=== PATIENT | female | born 1985 | race Caucasian/White ===

== ENCOUNTER 2017-01-07 21:51 | Outpatient (CLI) | payer SELFPAY ==
[2017-01-07 22:42] LABS: APPEARANCE,URINE CLOUDY; BILIRUBIN,URINE NEGATIVE (NEGATIVE); GLUCOSE, URINE NEGATIVE (NEGATIVE); KETONES,URINE NEGATIVE (NEGATIVE); LEUKOCYTE ESTERASE,URINE NEGATIVE (NEGATIVE); NITRITE,URINE NEGATIVE (NEGATIVE); PROTEIN,URINE NEGATIVE (NEGATIVE); URINE SPECIFIC GRAVITY 1.021
[2017-01-07 22:53] LABS: URINE BARBITURATES SCREEN NEGATIVE; URINE METHADONE SCREEN NEGATIVE; URINE OPIATES LOW NEGATIVE; URINE PHENCYCLIDINE SCREEN NEGATIVE
[2017-01-07] MEDS ORDERED: LIDOCAINE 2% VISCOUS SOLN 20 ML UDCUP PO ONE (23:01)
[2017-01-07] MEDS ORDERED: METOCLOPRAMIDE HCL ORAL SOLN 10 MG/10 ML UDCUP PO ONE (23:01)
[2017-01-07] MEDS ORDERED: MAG HYDROX/AL HYDROX/SIMETH SUSP 30 ML UDCUP PO ONE (23:02)
[2017-01-07] MEDS ORDERED: LIDOCAINE 2% VISCOUS SOLN 20 ML UDCUP ONE (23:35)
[2017-01-07] MEDS ORDERED: METOCLOPRAMIDE HCL ORAL SOLN 10 MG/10 ML UDCUP ONE (23:35)
[2017-01-07] MEDS ORDERED: MAG HYDROX/AL HYDROX/SIMETH SUSP 30 ML UDCUP ONE (23:52)
[2017-01-07] MEDS: RINGERS SOLUTION,LACTATED 1,000 ML IV PRN (23:58)
[2017-01-08] MEDS: RINGERS SOLUTION,LACTATED 1,000 ML IV PRN (00:04)
== END 2017-01-08 02:08 | disposition home or self-care (01) ==
LOC: LC 21:51
PROVIDERS: ATTEND Obstetrics & Gynecology
PROC: 4A1HXCZ Monitoring of Products of Conception, Cardiac Rate, External Approach (ICD-10-PCS; principal; 2017-01-07)
DX: O26.893 Other specified pregnancy related conditions, third trimester (principal); R10.9 Unspecified abdominal pain; O48.0 Post-term pregnancy; Z3A.40 40 weeks gestation of pregnancy
CPT/HCPCS: 81001; 80307; J3490

== ENCOUNTER 2018-02-02 03:34 | Emergency (ER) | payer OTHER ==
--- NOTE | 2018-02-02 03:50 | ER Document Report ---
ED General - General Stated Complaint: ABDOMINAL PAIN Time Seen by Provider: 02/02/18 03:38 Notes: Patient is 33-year-old female presents with complaint of epigastric abdominal pain that was severe came on tonight. Pain then went away on her way here. Patient has had these episodes happen a few times in the past. She is post see a GI doctor in the past but had a baby and then was busy with out for a while and therefore never followed up. She said she plans on following up with a GI doctor soon. She says they always seem to happen when she has had more stress. She felt nausea but did not vomit. She said she felt as if there is a lot of pressure in her epigastric region. No black tarry stools. No bloody stools. No history of gallbladder disease. No abdominal surgeries. No other complaints at this time. No family history of coronary disease at a young age. TRAVEL OUTSIDE OF THE [place] IN LAST 30 DAYS: No - Related Data Allergies/Adverse Reactions: No Known Allergies Allergy (Verified 01/07/17 22:53) Past Medical History - Social History Smoking Status: Never Smoker Frequency of alcohol use: None Drug Abuse: None Family History: Reviewed & Not Pertinent Review of Systems - Review of Systems Notes: My Normal Review Basic REVIEW OF SYSTEMS: CONSTITUTIONAL : Denies fever, chills, or sweats. Denies recent illness. EENT: Denies eye, ear, throat, or mouth pain or symptoms. Denies nasal or sinus congestion. CARDIOVASCULAR: Denies chest pain. RESPIRATORY: Denies cough, cold, or chest congestion. Denies shortness of breath, difficulty breathing, or wheezing. GASTROINTESTINAL: Gastric abdominal pain, nausea. GENITOURINARY: Denies difficulty urinating, painful urination, burning, frequency, or blood in urine. MUSCULOSKELETAL: Denies neck or back pain or joint pain or swelling. SKIN: Denies rash or skin lesions. NEUROLOGICAL: Denies altered mental status or loss of consciousness. Denies headache. Denies weakness or paralysis or loss of use of either side. Denies problems with gait or speech. Denies sensory or motor loss. ALL OTHER SYSTEMS REVIEWED AND NEGATIVE. Physical Exam - Vital signs Vitals: Resp Pulse Ox 20 100 02/02/18 03:54 02/02/18 03:54 - Notes Notes: General Appearance: Well nourished, alert, cooperative, no acute distress, no obvious discomfort. Appearing. Vitals: reviewed, See vital signs table. Head: no swelling or tenderness to the head Eyes: PERRL, EOMI, Conjuctiva clear Mouth: No decreasd moisture Lungs: No wheezing, No rales, No rhonci, No accessory muscle use, good air exchange bilaterally. Heart: Normal rate, Regular rythm, No murmur, no rub Abdomen: Normal BS, soft, No rigidity, no reproducible tenderness palpation of the abdomen., No guarding, no rebound, no abdominal masses, no organomegaly Extremities: strength 5/5 in all extremities, good pulses in all extremities, no swelling or tenderness in the extremities, no edema. Skin: warm, dry, appropriate color, no rash Neuro: speech clear, oriented x 3, normal affect, responds appropriately to questions. Course - Re-evaluation Re-evalutation: 02/02/18 05:56 Patient looks very well. She is remained pain-free since she arrived to the ER. She is in no distress. EKG shows no concerning findings. I suspect her pain most likely is related to gastritis or gastric ulcer. Symptoms seem to occur more when she is a stressful event. She mentions to me that in the past she has had the symptoms and took Prilosec and relieved her symptoms. I informed her that she can take Prilosec on days when she is having more exacerbations. I told her although why she should take a H2 cameron such as Zantac or Pepcid on a daily basis to work as a preventative. She said she can follow-up with her doctor today for referral to GI. Encouraged her return to ER immediately if she has severe worsening pain, vomiting, fevers, or feels unwell. Patient agrees with plan will be discharged home. Dictation of this chart was performed using voice recognition software; therefore, there may be some unintended grammatical errors. - Vital Signs Vital signs: Temp Pulse Resp BP Pulse Ox 17 103/74 98 02/02/18 05:01 02/02/18 05:01 02/02/18 05:01 - Laboratory Result Diagrams: 02/02/18 05:11 02/02/18 05:11 Laboratory results interpreted by me: 02/02/18 05:11 Sodium 145.6 H Chloride 108 H Discharge - Discharge Clinical Impression: Abdominal pain Qualifiers: Abdominal location: epigastric Qualified Code(s): R10.13 - Epigastric pain Condition: Good Disposition: HOME, SELF-CARE Additional Instructions: Please return to the ER immediately if you develop severe recurring pain, vomiting, black or tarry appearing stools, fevers, chest pain, or feel unwell. Please talk to your doctor about referral to a GI physician. Please take prilosec or omeprazole on the days you are having symptoms. Take pepcid or Zantac daily. Avoid spicy foods, fried foods, and acidic foods.
[2018-02-02 05:23] LABS: ABSOLUTE EOSINOPHILS # (AUTO) 0.1 10^3/uL (0.0-0.6); ABSOLUTE LYMPHOCYTES (AUTO) 1.2 10^3/uL (0.5-4.7); ABSOLUTE MONOCYTES (AUTO) 0.4 10^3/uL (0.1-1.4); BASOPHILS % (AUTO) 0.3 % (0-2); EOSINOPHILS % (AUTO) 1.8 % (0-6); HEMATOCRIT 39.2 % (36.0-47.0); HEMOGLOBIN 13.8 g/dL (12.0-15.5); LYMPHOCYTES % (AUTO) 17.1 % (13-45); MEAN CORPUSCULAR HGB CONC 35.1 g/dL (32.0-36.0); MEAN CORPUSCULAR VOLUME 86 fl (80-97); MONOCYTES % (AUTO) 6.6 % (3-13); PLATELET COUNT 170 10^3/uL (150-450); RED BLOOD COUNT 4.58 10^6/uL (3.72-5.28); RED CELL DISTRIBUTION WIDTH 12.7 % (11.5-14.0); SEGMENTED NEUTROPHILS % (AUTO) 74.2 % (42-78); TOTAL CELLS COUNTED % (AUTO) 100 %; WHITE BLOOD COUNT 6.8 10^3/uL (4.0-10.5)
[2018-02-02 05:41] LABS: ALANINE AMINOTRANSFERASE 23 U/L (9-52); ALBUMIN 3.9 g/dL (3.5-5.0); ALKALINE PHOSPHATASE 61 U/L (38-126); ANION GAP 13 (5-19); ASPARTATE AMINO TRANSFERASE 26 U/L (14-36); BILIRUBIN,DIRECT 0.3 mg/dL (0.0-0.4); BILIRUBIN,TOTAL 1.1 mg/dL (0.2-1.3); BLOOD UREA NITROGEN 15 mg/dL (7-20); CALCIUM 9.3 mg/dL (8.4-10.2); CARBON DIOXIDE 25 mmol/L (22-30); CHLORIDE 108 mmol/L (98-107); GLUCOSE 92 mg/dL (75-110); LIPASE 86.5 U/L (23-300); POTASSIUM 3.8 mmol/L (3.6-5.0); SODIUM 145.6 mmol/L (137-145)
[2018-02-02 06:10] VITALS: BP 112/69
--- NOTE | 2018-02-02 07:23 | EKG REPORT ---
SEVERITY:- ABNORMAL ECG - SINUS RHYTHM ABNORMAL T, CONSIDER ISCHEMIA, INFERIOR LEADS : Confirmed by: David Condon MD 02-Feb-2018 07:23:03
== END 2018-02-02 06:18 | disposition home or self-care (01) ==
LOC: ER 03:34
DX: R10.13 Epigastric pain (principal); R11.0 Nausea
CPT/HCPCS: 36415; 80053; 83690; 84703; 85025; 93005; 93010; 99284

== ENCOUNTER 2018-09-19 02:51 | Emergency (ER) | payer OTHER ==
[2018-09-19] MEDS ORDERED: RINGERS SOLUTION,LACTATED 1,000 ML IV ONE (03:37)
--- NOTE | 2018-09-19 03:37 | ER Document Report ---
ED General - General Chief Complaint: Abdominal Pain Stated Complaint: ABDOMINAL PAIN Time Seen by Provider: 09/19/18 03:24 Notes: Patient is a 33-year-old female that presents to the emergency department for chief complaint of right upper quadrant abdominal pain, nausea and vomiting. Patient states the pain just started earlier today, she is associated nausea and vomiting. She currently rates her pain as a 6 out of 10 describes as a severe aching sensation is occasionally stabbing and goes towards the back. She states she has had pain like this before, but was never diagnosed with anything. She did come by EMS and received IV fentanyl and IV fluids, which did seem to help for a little bit. Past Medical History: Denies chronic medical conditions Past Surgical History: C-sections Social History: Admits to occasional alcohol use, denies tobacco or illicit drug use. Family History: Reviewed and noncontributory for presenting illness Allergies: Reviewed, see documented allergy list. REVIEW OF SYSTEMS: Other than noted above, the 12 point review of systems was reviewed with the patient and were negative, all pertinent findings are included in the HPI. PHYSICAL EXAMINATION: Vital signs reviewed, nursing noted reviewed. GENERAL: Patient appears uncomfortable on exam, but appropriate HEAD: Atraumatic, normocephalic. EYES: Eyes appear normal, extraocular movements intact, sclera anicteric, conjunctiva are normal. ENT: nares patent, oropharynx clear without exudates. Moist mucous membranes. NECK: Normal range of motion, supple without lymphadenopathy LUNGS: Breath sounds clear to auscultation bilaterally and equal. No wheezes rales or rhonchi. HEART: Heart rate bradycardic, regular rhythm ABDOMEN: Soft, tenderness with palpation in the right upper quadrant, positive Shine sign, normoactive bowel sounds. No rebound, guarding, or rigidity. No masses appreciated. EXTREMITIES: Nontender, good range of motion, no pitting or edema. NEUROLOGICAL: No focal neurological deficits. Moves all extremities spontaneously Motor and sensory grossly intact on exam. PSYCH: Flat affect, appears uncomfortable SKIN: Warm, Dry, normal turgor, no rashes or lesions noted on exposed skin TRAVEL OUTSIDE OF THE [place] IN LAST 30 DAYS: No - Related Data Allergies/Adverse Reactions: No Known Allergies Allergy (Verified 09/19/18 03:06) Past Medical History - Social History Smoking Status: Former Smoker Frequency of alcohol use: Occasional Drug Abuse: None Family History: Reviewed & Not Pertinent Patient has suicidal ideation: No Patient has homicidal ideation: No Renal/ Medical History: Denies: Hx Peritoneal Dialysis Past Surgical History: Reports: Hx Section Physical Exam - Vital signs Vitals: Temp Pulse Resp BP Pulse Ox 97.8 F 53 L 15 156/88 H 100 09/19/18 02:51 09/19/18 02:51 09/19/18 02:51 09/19/18 02:51 09/19/18 02:51 Course - Re-evaluation Re-evalutation: Patient seen and examined vital signs reviewed. Laboratory data and imaging were ordered as appropriate for the patient's presenting symptoms and complaint, with consideration of any critical or life threatening conditions that may be associated with their obtained history and exam as noted above. Patient was treated with IV fluids, morphine and Zofran Results were reviewed when available and demonstrated CT imaging concerning for acute cholecystitis with cholelithiasis, blood work demonstrated a total bilirubin of 3.3 and direct of 1.3, this is new for this patient, she also had a pretty significant transaminitis, with her AST greater than 800, ALT greater than 700, lipase is normal, alk phos normal. No leukocytosis. The patient was re-evaluated and was still having some pain, she was ordered a dose of IV Dilaudid for her pain, given additional IV fluid bolus. Evaluation was most consistent with acute cholecystitis, with cholelithiasis co ncerning for possible cholangitis, I did discuss this case with our in-house surgeon Dr. Huerta, who stated that we do not have ERCP available, and will likely be needed prior to patient having cholecystectomy, and he recommended transfer at this time. Results were discussed with the patient at this point after careful consideration I feel that that patient should be transferred to [facility] for acute cholecystitis, with need for ERCP, discussed the case with Dr Delacruz, with the hospitalist service at [facility], who accepted the patient under their service. This was discussed with the patient that it is in the best interest for their care to be transferred, the risks and benefits of transfer were discussed, including but not limited to clinical deterioration during transport, respiratory distress, and potential for traumatic injuries. Patient agreed with this plan of care. *Note is created using voice recognition software and may contain spelling, syntax or grammatical errors. Laboratory 09/19/18 09/19/18 09/19/18 03:23 03:23 03:23 WBC 4.9 RBC 4.81 Hgb 14.9 Hct 41.4 MCV 86 MCH 31.1 MCHC 36.1 H RDW 12.6 Plt Count 181 Seg Neutrophils % 77.5 Lymphocytes % 15.5 Monocytes % 6.3 Eosinophils % 0.5 Basophils % 0.2 Absolute Neutrophils 3.8 Absolute Lymphocytes 0.8 Absolute Monocytes 0.3 Absolute Eosinophils 0.0 Absolute Basophils 0.0 Sodium 139.1 Potassium 4.2 Chloride 108 H Carbon Dioxide 25 Anion Gap 6 BUN 15 Creatinine 0.62 Est GFR ( Amer) > 60 Est GFR (Non-Af Amer) > 60 Glucose 107 Calcium 9.5 Total Bilirubin 3.3 H Direct Bilirubin 1.3 H Neonat Total Bilirubin Not Reportable Neonat Direct Bilirubin Not Reportable Neonat Indirect Bili Not Reportable AST 894 H ALT 768 H Alkaline Phosphatase 96 Total Protein 7.2 Albumin 4.1 Lipase 94.6 Serum HCG, Qual NEGATIVE Urine Color Urine Appearance Urine pH Ur Specific [place] Urine Protein Urine Glucose (UA) Urine Ketones Urine Blood Urine Nitrite Urine Bilirubin Urine Urobilinogen Ur Leukocyte Esterase Urine WBC (Auto) Urine RBC (Auto) Urine Bacteria (Auto) Squamous Epi Cells Auto Urine Mucus (Auto) Urine Yeast (Budding) Urine Ascorbic Acid 09/19/18 04:06 WBC RBC Hgb Hct MCV MCH MCHC RDW Plt Count Seg Neutrophils % Lymphocytes % Monocytes % Eosinophils % Basophils % Absolute Neutrophils Absolute Lymphocytes Absolute Monocytes Absolute Eosinophils Absolute Basophils Sodium Potassium Chloride Carbon Dioxide Anion Gap BUN Creatinine Est GFR ( Amer) Est GFR (Non-Af Amer) Glucose Calcium Total Bilirubin Direct Bilirubin Neonat Total Bilirubin Neonat Direct Bilirubin Neonat Indirect Bili AST ALT Alkaline Phosphatase Total Protein Albumin Lipase Serum HCG, Qual Urine Color DARK YELLOW Urine Appearance CLOUDY Urine pH 8.0 Ur Specific [place] 1.021 Urine Protein 30 H Urine Glucose (UA) NEGATIVE Urine Ketones 80 H Urine Blood NEGATIVE Urine Nitrite NEGATIVE Urine Bilirubin NEGATIVE Urine Urobilinogen 2.0 H Ur Leukocyte Esterase SMALL H Urine WBC (Auto) 22 Urine RBC (Auto) 5 Urine Bacteria (Auto) TRACE Squamous Epi Cells Auto 6 Urine Mucus (Auto) OCC Urine Yeast (Budding) PRESENT Urine Ascorbic Acid 20 H Abdomen/Pelvis CT 09/19/18 03:39 IMPRESSION: 1. Cholelithiasis with pericholecystic inflammatory change. Findings suggest acute cholecystitis. This exam was performed according to our departmental dose-optimization program, which includes automated exposure control, adjustment of the mA and/or kV according to patient size and/or use of iterative reconstruction technique. Abdomen Ultrasound 09/19/18 05:06 IMPRESSION: Cholelithiasis, small pericholecystic fluid, and positive sonographic Shine's test suggestive of acute cholecystitis. - Vital Signs Vital signs: Temp Pulse Resp BP Pulse Ox 97.8 F 53 L 16 145/81 H 100 09/19/18 02:51 09/19/18 02:51 09/19/18 05:00 09/19/18 04:17 09/19/18 05:00 - Laboratory Result Diagrams: 09/19/18 03:23 09/19/18 03:23 Laboratory results interpreted by me: 09/19/18 09/19/18 09/19/18 03:23 03:23 04:06 MCHC 36.1 H Chloride 108 H Total Bilirubin 3.3 H Direct Bilirubin 1.3 H AST 894 H ALT 768 H Urine Protein 30 H Urine Ketones 80 H Urine Urobilinogen 2.0 H Ur Leukocyte Esterase SMALL H Urine Ascorbic Acid 20 H Discharge - Discharge Clinical Impression: Acute cholecystitis, Transaminitis Cholelithiasis Qualifiers: Cholelithiasis location: gallbladder Cholecystitis presence: with cholecystitis Cholecystitis acuity: acute Biliary obstruction: with biliary obstruction Qualified Code(s): K80.01 - Calculus of gallbladder with acute cholecystitis with obstruction Condition: Stable Disposition: [facility]
[2018-09-19] MEDS ORDERED: MORPHINE SULFATE 10 MG/ML INJ IV ONE ×2 (03:39→09:41)
[2018-09-19] MEDS ORDERED: ONDANSETRON HCL INJ/PF 4 MG/2 ML SDV IV ONE ×2 (03:39→09:41)
[2018-09-19 04:00] LABS: ABSOLUTE LYMPHOCYTES (AUTO) 0.8 10^3/uL (0.5-4.7); ABSOLUTE MONOCYTES (AUTO) 0.3 10^3/uL (0.1-1.4); ABSOLUTE NEUT (AUTO) 3.8 10^3/uL (1.7-8.2); BASOPHILS % (AUTO) 0.2 % (0-2); EOSINOPHILS % (AUTO) 0.5 % (0-6); HEMATOCRIT 41.4 % (36.0-47.0); HEMOGLOBIN 14.9 g/dL (12.0-15.5); LYMPHOCYTES % (AUTO) 15.5 % (13-45); MEAN CORPUSCULAR HEMOGLOBIN 31.1 pg (27.0-33.4); MEAN CORPUSCULAR HGB CONC 36.1 g/dL (32.0-36.0); MEAN CORPUSCULAR VOLUME 86 fl (80-97); MONOCYTES % (AUTO) 6.3 % (3-13); PLATELET COUNT 181 10^3/uL (150-450); RED BLOOD COUNT 4.81 10^6/uL (3.72-5.28); RED CELL DISTRIBUTION WIDTH 12.6 % (11.5-14.0); SEGMENTED NEUTROPHILS % (AUTO) 77.5 % (42-78); TOTAL CELLS COUNTED % (AUTO) 100 %; WHITE BLOOD COUNT 4.9 10^3/uL (4.0-10.5)
[2018-09-19 04:23] LABS: APPEARANCE,URINE CLOUDY; BILIRUBIN,URINE NEGATIVE (NEGATIVE); GLUCOSE, URINE NEGATIVE (NEGATIVE); KETONES,URINE 80 mg/dL (NEGATIVE); LEUKOCYTE ESTERASE,URINE SMALL (NEGATIVE); NITRITE,URINE NEGATIVE (NEGATIVE); PROTEIN,URINE 30 mg/dL (NEGATIVE); URINE SPECIFIC GRAVITY 1.021
[2018-09-19 04:26] LABS: COLOR,URINE DARK YELLOW
[2018-09-19 04:34] LABS: ALANINE AMINOTRANSFERASE 768 U/L (9-52); ALBUMIN 4.1 g/dL (3.5-5.0); ALKALINE PHOSPHATASE 96 U/L (38-126); ANION GAP 6 (5-19); BILIRUBIN,DIRECT 1.3 mg/dL (0.0-0.4); BILIRUBIN,TOTAL 3.3 mg/dL (0.2-1.3); BLOOD UREA NITROGEN 15 mg/dL (7-20); CALCIUM 9.5 mg/dL (8.4-10.2); CARBON DIOXIDE 25 mmol/L (22-30); CHLORIDE 108 mmol/L (98-107); GLUCOSE 107 mg/dL (75-110); LIPASE 94.6 U/L (23-300); POTASSIUM 4.2 mmol/L (3.6-5.0); SODIUM 139.1 mmol/L (137-145); TOTAL PROTEIN 7.2 g/dL (6.3-8.2)
[2018-09-19 04:48] LABS: ASPARTATE AMINO TRANSFERASE 894 U/L (14-36)
--- NOTE | 2018-09-19 05:20 | RADIOLOGY REPORT (SQ) ---
EXAM DESCRIPTION: CT ABDOMEN PELVIS WITH IV CONTRAST COMPLETED DATE/TME: 09/19/2018 03:39 CLINICAL HISTORY: ruq pain COMPARISON: None Available. TECHNIQUE: CT of the abdomen and pelvis performed following IV administration of 95 mL of Omnipaque 350. DLP: 1512.4 mGycm FINDINGS: Lung Bases: The visualized lung bases are clear. Bones: Spondylosis of the visualized thoracic and lumbar spine. Abdomen: Liver: The liver has normal size and density. No intrahepatic mass or biliary dilatation. Gallbladder: Cholelithiasis with pericholecystic inflammatory change. Spleen, Pancreas, and Adrenal Glands: The spleen, pancreas, and adrenal glands are unremarkable. Kidneys: The kidneys have normal size and contour without evidence of solid mass or hydronephrosis. Vasculature: The aorta and IVC have normal caliber and position. The portal vein is patent. The proximal visceral and renal arteries are patent. Stomach: The stomach and duodenum have normal course. Other: No free intraperitoneal air. No free fluid or lymphadenopathy. Pelvis: Bladder: Urinary bladder is unremarkable. Bowel: No dilated loops of large or small bowel. Appendix: Normal appendix. Pelvis: Small amount of free fluid. Uterus is not enlarged. IMPRESSION: 1. Cholelithiasis with pericholecystic inflammatory change. Findings suggest acute cholecystitis. This exam was performed according to our departmental dose-optimization program, which includes automated exposure control, adjustment of the mA and/or kV according to patient size and/or use of iterative reconstruction technique.
[2018-09-19] MEDS ORDERED: PIPERACILLIN/TAZOBACTAM 3.375 GM VIAL IV ONE ×2 (05:25→17:11)
[2018-09-19] MEDS ORDERED: HYDROMORPHONE HCL INJ/PF 2 MG/ML AMPULE IV ONE ×2 (05:40→14:44)
--- NOTE | 2018-09-19 06:04 | RADIOLOGY REPORT (SQ) ---
EXAM DESCRIPTION: US ABDOMEN LIMITED COMPLETED DATE/TME: 09/19/2018 05:06 CLINICAL HISTORY: 33 years Female, ruq abdominal pain Comparison: None. LIMITATIONS: None. FINDINGS: Gallbladder sludge, small pericholecystic fluid, positive sonographic Shine's test, liver, a 0.5-cm diameter common bile duct, no intrahepatic ductal dilation, 12-cm right kidney, partially obscured pancreas, visualized vasculature/abdominal aorta, and no significant ascites appear otherwise unremarkable. IMPRESSION: Cholelithiasis, small pericholecystic fluid, and positive sonographic Shine's test suggestive of acute cholecystitis.
[2018-09-19] MEDS ORDERED: NORMAL SALINE 1000 ML 1,000 ML IV ONE (06:05)
[2018-09-19] MEDS ORDERED: DEXTROSE 5%-LACTATED RINGERS 1,000 ML IV ONE (06:31)
--- NOTE | 2018-09-19 11:02 | ER Document Report ---
Doctor's Note Notes: 09/19/18 10:57 Rounds: Chart reviewed and patient interviewed. Patient complains of pain in the right upper quadrant with nausea and vomiting for just 1 day. Seen and evaluated on previous shift. Patient diagnosed with cholelithiasis and cholecystitis. Lab studies showed moderate elevation of her liver enzymes. Total bilirubin was 3.3. Lipase only 95. WBC only 4900. Patient will likely require ERCP which is not available at this hospital this weekend. Call was placed to [facility] and patient was accepted for transfer by Dr. Delacruz, but there are no beds available. I have evaluated the patient and reviewed her chart and examined her. She just received a dose of morphine IV and says that she is comfortable at this time. Has had a dose of Zosyn IV. At 10:30 AM, I placed a call to [facility] to try to get the patient transferred there, as an alternative to [facility]. 09/19/18 13:23 About an hour or so ago, I spoke with Dr. Coyne, at [facility], who did not feel the patient needed to have ERCP and did not accept the patient. Dr. Coyne recommended obtaining MRCP to determine need for transfer. Jayne Velasco MD 09/19/18 15:53 Patient's MRI showed evidence of likely stones in the common bile duct. I have spoken with , at [facility], is accepting the patient for transfer there. 09/19/18 17:09 Have a bed assignment at [facility].
--- NOTE | 2018-09-19 14:27 | RADIOLOGY REPORT (SQ) ---
EXAM DESCRIPTION: MRI ABDOMEN WITHOUT COMPLETED DATE/TIME: 09/19/2018 2:12 pm REASON FOR STUDY: mrcp COMPARISON: CT abdomen pelvis 09/19/2018 Right upper quadrant ultrasound 09/19/2018 TECHNIQUE: Noncontrast MRCP. Source and MIP images reviewed. LIMITATIONS: None. FINDINGS: GALLBLADDER: Multiple tiny stones layer dependently in the gallbladder. There is borderli ne gallbladder wall thickening and diffuse pericholecystic fluid. A 2 to 3 mm stone occludes the cystic duct on series 6, image 48/116. INTRAHEPATIC DUCTS: Nondilated. EXTRAHEPATIC DUCTS: Common bile duct is normal caliber, less than 5 mm. Question 2 to 3 mm stone in the distal common bile duct, best shown on series 6, image 48/116. No pancreatic ductal dilatation. PANCREAS: Generally homogeneous, no gross mass or significant signal alteration. No surrounding infl ammatory changes or fluid. Pancreatic duct is normal. LIVER, SPLEEN, KIDNEYS, ADRENALS: No significant abnormality. VESSELS: No evidence of aneurysm. Grossly appropriate flow voids in the major vascular structures. LUNG BASES: Grossly clear. OTHER: No other significant finding. IMPRESSION: Acute cholecystitis with gallbladder wall thickening and pericholecystic fluid. 2 to 3 mm stone in the cystic duct. Although the common bile duct is nondilated, there is a questionable filling defect in the distal com mon bile duct from 2 to 3 mm distal ductal stone. TECHNICAL DOCUMENTATION: JOB ID: [id number] [employer]- All Rights Reserved Reading location - IP[facility]workstation name: [email or web address]
[2018-09-19] MEDS ORDERED: HYDROMORPHONE HCL INJ/PF 2 MG/ML AMPULE IV PRN (17:13)
[2018-09-19] MEDS ORDERED: DEXTROSE 5%-NORMAL SALINE 1,000 ML IV ONE (17:16)
[2018-09-19 20:07] VITALS: BP 113/72
[2018-09-20 12:37] LABS: HEPATITIS A AB IGM Negative (Negative); HEPATITIS B CORE AB IGM Negative (Negative); HEPATITS B SURFACE ANTIGEN Negative (Negative)
[2018-09-20 13:00] LABS: HEPATITIS C VIRUS ANTIBODY <0.1 s/co ratio (0.0-0.9)
== END 2018-09-19 20:20 | disposition short-term general hospital (02) ==
LOC: ER 02:51
DX: K80.01 Calculus of gallbladder with acute cholecystitis with obstruction (principal); R74.0 Nonspecific elevation of levels of transaminase and lactic acid dehydrogenase [LDH]; R11.2 Nausea with vomiting, unspecified; R10.11 Right upper quadrant pain
CPT/HCPCS: 96376; 99285; 96361; 96375; 96365; 36415; 83690; 84703; 85025; 80053; 81001; 80074; 74181; 76705; 74177; J2270; J1170; J2405; J7030; J7120; J2543